=== PATIENT | male | born 1960 ===

== ENCOUNTER 2017-06-05 18:23 | Emergency (ER) | payer BC ==
[2017-06-05 18:42] VITALS: BP 147/83; PULSE 73; RESP 20; TEMP 98.1; O2SAT 97
[2017-06-05] MEDS ORDERED: Tmp-Smz 800 mg-160 mg DS Tab PO STA (19:00)
--- NOTE | 2017-06-05 19:01 | C.PDOC ---
History Of Present Illness 57 y/o male with PMHx of Diabetes presents to ED with complaints of bump above lip for 4 days with associated face swelling. Patient also complaint of burning and itching to eyes with associated throat pain. Patient denies fever, rash, vomiting, shortness of breath or any other complaints at this time. Time Seen by Provider: 06/05/17 18:53 Chief Complaint (Nursing): Abnormal Skin Integrity History Per: Patient History/Exam Limitations: no limitations Onset/Duration Of Symptoms: Days Current Symptoms Are (Timing): Still Present Past Medical History Reviewed: Historical Data, Nursing Documentation, Vital Signs Vital Signs: Last Vital Signs Temp 98.1 F 06/05/17 18:39 Pulse 73 06/05/17 18:39 Resp 20 06/05/17 18:39 BP 147/83 06/05/17 18:39 Pulse Ox 97 06/05/17 19:21 - Medical History PMH: HTN Surgical History: No Surg Hx Family History: States: No Known Family Hx - Social History Hx Alcohol Use: No Hx Substance Use: No - Immunization History Hx Tetanus Toxoid Vaccination: No Hx Influenza Vaccination: No Hx Pneumococcal Vaccination: No Review Of Systems Constitutional: Negative for: Fever, Chills ENT: Positive for: Nose Pain, Throat Pain Cardiovascular: Negative for: Chest Pain Respiratory: Negative for: Shortness of Breath Gastrointestinal: Negative for: Nausea, Vomiting Skin: Negative for: Rash Neurological: Negative for: Weakness, Numbness Physical Exam - Physical Exam Appears: Non-toxic, No Acute Distress Skin: Warm, Dry, No Rash, Other (Tender erythematous indurated swollen mass and pustule to nasal philtrum (-)drainage (-)flunctuance) Head: Atraumatic, Normacephalic Eye(s): bilateral: Normal Inspection Nose: Normal Oral Mucosa: Moist Throat: Normal, No Erythema, No Exudate Neck: Supple Chest: Symmetrical Extremity: Normal ROM, Capillary Refill (<2 seconds), No Deformity, No Swelling Neurological/Psych: Oriented x3, Normal Speech ED Course And Treatment O2 Sat by Pulse Oximetry: 97 (RA) Pulse Ox Interpretation: Normal Medical Decision Making Medical Decision Making: Patient treated with Bactrim. Recommend warm compresses to area. Rx given. Recommend wound check in 2 days Disposition Counseled Patient/Family Regarding: Diagnosis, Need For Followup, Rx Given - Disposition Referrals: [facility] [Outside] [facility] [employer] [facility] [Outside] Disposition: HOME/ ROUTINE Disposition Time: 19:01 Condition: STABLE Additional Instructions: Vaya a cruz mdico o la clnica en 2-5 wong sin falta, para mas evaluacin. [place] los medicamentos remedios indicado. Volver a la christopher de emergencia en cualquier momento si los sntomas persisten o empeoran. Prescriptions: Mupirocin 2% Cream [Bactroban Cream] 30 applic EXT BID #1 tube Sulfamethoxazole/Trimethoprim [Bactrim DS 800 mg-160 mg] 1 tab PO BID #14 tab Instructions: Furunculosis and Carbunculosis (ED) Forms: [employer] ([place]i) Print Language: MALAY - POA Present On Arrival: None - Clinical Impression Clinical Impression: Furuncle of nose - PA / TRANSCRIPT EVALUATOR / Resident Statement MD/DO has reviewed & agrees with the documentation as recorded. - Scribe Statement The provider has reviewed the documentation as recorded by the Philipibteja Mckeon All medical record entries made by the Philipibteja were at my direction and personally dictated by me. I have reviewed the chart and agree that the record accurately reflects my personal performance of the history, physical exam, medical decision making, and the department course for this patient. I have also personally directed, reviewed, and agree with the discharge instructions and disposition.
[2017-06-05] MEDS ORDERED: Tmp-Smz 800 mg-160 mg DS Tab ONE (19:06)
== END 2017-06-05 19:30 | disposition home or self-care (01) ==
LOC: C.ER 18:23
DX: J34.0 Abscess, furuncle and carbuncle of nose (principal)